=== PATIENT | male | born 1970 | race African-American/Black ===

== ENCOUNTER 2021-10-18 15:20 | Emergency (ER) | payer BC, SELFPAY ==
[2021-10-18] MEDS ORDERED: Ketorolac Tromethamine 30 MG/ML VIAL ONE (19:14)
== END 2021-10-18 19:26 | disposition home or self-care (01) ==
LOC: CSHERS 15:20
DX: S93.402A Sprain of unspecified ligament of left ankle, initial encounter (principal); I10 Essential (primary) hypertension; I48.91 Unspecified atrial fibrillation; E66.9 Obesity, unspecified; X50.1XXA Overexertion from prolonged static or awkward postures, initial encounter
CPT/HCPCS: J1885